=== PATIENT | male | born 1955 | race Caucasian/White ===

== ENCOUNTER 2018-07-19 11:09 | Day surgery (SDC) | payer OTHER ==
[~2018-07-19] VITALS: Ht 185.4 cm; Wt 100.5 kg
[~2018-07-19 11:09] MED LIST: CIPR500 PO; DOCU100 PO; ENOX40I SUBQ; HYDACE5; LO-DOSE ASPIRIN81 MG PO; OMEP20ER PO; OXYACE5T PO; OXYC5 PO; SIMV10 PO; SIMV40 PO; Zestril30 MG PO; [UNRECOGNIZED DRUG - OTHER]
--- NOTE | 2018-07-19 13:49 | NUR ---
07/19/18 1349 Jennifer Ledesma LATE ENTRY FOR TODAY DURING DISCHARGE PATIENT REFUSED MULTIPLE OFFERS OF PO FLUIDS.
== END 2018-07-19 13:45 | disposition home or self-care (01) ==
LOC: ORSCSDS 11:09
PROVIDERS: Internal Medicine Gastroenterology
PROC: 0DBN8ZX Excision of Sigmoid Colon, Via Natural or Artificial Opening Endoscopic, Diagnostic (ICD-10-PCS; principal; 2018-07-19 12:30)
PROC: 0DBL8ZX Excision of Transverse Colon, Via Natural or Artificial Opening Endoscopic, Diagnostic (ICD-10-PCS; principal; 2018-07-19 12:30)
PROC: 0DBK8ZX Excision of Ascending Colon, Via Natural or Artificial Opening Endoscopic, Diagnostic (ICD-10-PCS; principal; 2018-07-19 12:30)
DX: Z12.11 Encounter for screening for malignant neoplasm of colon (principal); D12.2 Benign neoplasm of ascending colon; D12.3 Benign neoplasm of transverse colon; D12.5 Benign neoplasm of sigmoid colon; K64.8 Other hemorrhoids; I10 Essential (primary) hypertension; E78.5 Hyperlipidemia, unspecified; Z79.82 Long term (current) use of aspirin; Z79.899 Other long term (current) drug therapy
CPT/HCPCS: 88305; J2704; J7120